=== PATIENT | male | born 1970 | race Caucasian/White ===

== ENCOUNTER 2023-09-26 09:05 | Outpatient (CLI) | payer BC, SELFPAY ==
--- NOTE | 2023-09-29 15:00 | WPDHOLTEREM ---
Holter/Event Monitor Holter/Event Monitor Date of procedure: 09/26/23 Holter/Event Procedure: 48 Hr Holter Monitor Indications: Irregular heart beat Conclusion: 1. 48 hour holter monitor on 09/26/23. 2. Underlying rhythm is sinus rhythm. HR range 54-126 bpm; average HR 84 bpm. 3. There are 19 premature supraventricular complexes and 1 supraventricular couplet. No supraventricular tachycardia. 4. There are 8 premature ventricular complexes. No ventricular tachycardia. 5. No sinoatrial or atrioventricular blocks. No significant pauses greater than 2 seconds. 6. Patient reports symptoms of headache which demonstrates sinus rhythm at 76 bpm.
== END 2023-09-26 09:06 | disposition home or self-care (01) ==
LOC: CHSCARD 09:11
PROVIDERS: PCP Nurse Practitioner Family; Visit Provider Nurse Practitioner Family
DX: Z13.6 Encounter for screening for cardiovascular disorders (principal)
CPT/HCPCS: 93225; 93226

== ENCOUNTER 2025-05-04 10:15 | Outpatient (CLI) | payer OTHER, SELFPAY ==
--- NOTE | 2025-05-04 10:30 | ECG_ITS ---
Test Date: 2025-05-04 10:55:05 Measurements Intervals [place] Rate: 87 P: 44 CO: 193 QRS: 74 QRSD: 86 T: 32 QT: 338 QTc: 408 Interpretive Statements SINUS RHYTHM WITH OCCASIONAL ECTOPIC PREMATURE COMPLEXES LEFT ATRIAL ENLARGEMENT LOW QRS VOLTAGE IN PRECORDIAL LEADS PATTERN CONSISTENT WITH PULMONARY DISEASE CONSIDER INFERIOR INFARCT, AGE INDETERMINATE BASELINE ARTIFACT- I, III, AVR, AVL, AVF, V1 ABNORMAL ECG No previous ECG available for comparison Electronically Signed On 05-04-2025 11:50:33 BUFFING MACHINE OPERATOR SEMIAUTOMATIC by Jovanni Vaughan D.O.
--- OUTSIDE RECORDS SUMMARY | 2025-05-04 11:36 | XMS_ITS | Clinical Summary ---
Author Organization [facility] [address] Address [address] [place] [id number] Care Team Providers Care Pharmacy Technician Per Diem Name Role Phone Unknown, Notinfile Primary Care Provider Unavail able Allergies Active Allergy Reactions Criticality Noted Date Comments Penicillins Syncope High 10/04/2021 Medications No known medications Active Problems No known active problems Surgical History Surgery Date Site/Laterality Comments SHOULDER OPEN ROTATOR CUFF REPAIR Medical History Medical History Date Comments Hyperlipidemia Social History Tobacco Use Types Packs/Day Years Used Date Smoking Tobacco: Never Smokeless Tobacco: Never AUDIT-C Answer Date Recorded Q1: How often do you have a drink containing alc ohol? 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 Gender Identity Not on file Sexual Orientation Not on file Last Filed Vital Signs Vital Sign Reading Time Taken Comments Blood Pressure 152/88 02/28/2024 6:53 PM CDT Pulse 95 02/28/2024 6:53 PM CDT Temperature 36.9 C (98.4 F) 02/28/2024 6:53 PM CDT Respiratory Rate 20 02/28/2024 6:53 PM CDT Oxygen Saturation 98% 02/28/2024 6:53 PM CDT Inhaled Oxygen Concentration - - Weight 119.5 kg (263 lb 6.4 oz) 02/28/2024 6:53 PM CDT Height 190.5 cm (6' 3) 02/28/2024 6:53 PM CDT Body Mass Index 32.92 02/28/2024 6:53 PM CDT Plan of Treatment Health Maintenance Due Date Last Done Comments Colon Cancer Screening-Colonoscopy 1971 Depression Screening 1971 Hepatitis C Screening 1971 Prostate Cancer Screening-PSA 1971 DTaP/Tdap/Td Vaccine (1 - Tdap) 1982 Hepatitis B Screening 1989 Regular Well Visit/Exam 18-64 1989 Zoster Vaccine (1 of 2) 2021 Covid-19 Vaccine (3 - 2024-2 6 season) 2025 09/28/2020, 09/07/2020 Influenza Vaccine (#1) 2025 Pneumococcal vaccine <65 Aged Out No longer eligible based on patient's age to complete this topic Insurance [facility] Care Teams Pharmacy Technician Per Diem Relationship Specialty Start Date End Date Unknown, Notinfile PCP - General 02/28/24
--- OUTSIDE RECORDS SUMMARY | 2025-05-04 11:36 | XMS_ITS | Clinical Summary ---
Author Organization [facility] Address [address] [phone] Phone Care Team Providers Care Sports Umpire Name Role Phone Provider, None Primary Care Provider Unavailabl e Social History Tobacco Use Types Packs/Day Years Used Date Smoking Tobacco: Never Assessed Sex and Gender Information Value Date Recorded Sex Assigned at Not on file Legal Sex Male 8:54 PM CDT Gender Identity Not on file Sexual Orientation Not on file Plan of Treatment Health Maintenance Due Date Last Done Comments Hepatitis C Virus (HCV) Screening 1971 TdaP Immunization 1971 Hepatitis B Immunization (1 of 3 - 19+ 3-dose series) 1990 Cologuard 2016 Colonoscopy 2016 Colorectal Cancer Screening 2016 Immunochemical Fecal Occult Blood 2016 Pneumococcal Immunization (5 0+ years) (1 of 1 - PCV) 2021 Zoster Immunization (1 of 2) 2021 Influenza Immunization (#1) 2025 SARS-COV-2 Immunization ( - season) 2025 Respiratory Syncytial Virus (RSV) Immunization (Adult) (1 - 1-dose 75+ series) 2046 Human Papillomavirus (HPV) Immunization Aged Out No longer eligible b ased on patient's age to complete this topic Meningococcal Immunization (ACWY) Aged Out No longer eligible based on patient's age to complete this topic Rotavirus Immunization Aged Out No lo nger eligible based on patient's age to complete this topic Care Teams Sports Umpire Relationship Specialty Start Date End Date Provider, None [place] PCP - General 11/15/20
== END 2025-05-04 10:16 | disposition home or self-care (01) ==
LOC: ANHSURGERY 10:18
PROVIDERS: PCP Nurse Practitioner Family; Visit Provider Surgery
DX: K42.9 Umbilical hernia without obstruction or gangrene (principal); E78.5 Hyperlipidemia, unspecified
CPT/HCPCS: 36415; 86850; 86900; 86901; 93005

== ENCOUNTER 2025-05-09 00:43 | Day surgery (SDC) | payer OTHER, SELFPAY ==
[2025-05-03 13:58] VITALS: BMI 31.9
--- NOTE | 2025-05-03 14:08 | PC.NURSE ---
[facility] has started construction of its new state of the art ER which will open Spring 2026. With this, we anticipate parking may be a challenge for some our surgical patients and families. Parking spaces are limited but are available for all Surgical, obstetrics, and ER patients sharing this lot. If you arrive and find you are having a hard time finding a parking space, please note that we understand the challenges, please drive around the hospital and park near Hospital Entrance 1. When you enter this entrance, you can ask a volunteer to direct or take you back to the surgical waiting area to check in. We appreciate everyone?s understanding of these expected challenges while we build for your future. Report to the Outpatient Waiting Room, entrance under the green pavilion located off [address], at time 6:00AM on date 05/09/2025. Planned Procedure Time: 7:30AM.? Time changes happen often and if your time is changed the preop area will call you the afternoon before. - You and your visitor will be asked to self-screen and do not enter if you have any COVID symptoms. Please call surgeon if you need to reschedule. - A mask is optional within the hospital at this time. Patients may have clear liquids (water, carbonated beverages, clear teas, apple juice) until 3 hours prior to surgery with a maximum of 20 ounces. - No food from midnight until time of surgery and no smoking, or chewing tobacco (or any form of nicotine). No chewing gum, candy or mints. Take only the following medications with a SIP of water on the morning of surgery: N/A DO NOT STOP ANY OF YOUR OTHER PRESCRIPTION MEDICATIONS PRIOR TO SURGERY EXCEPT THE FOLLOWING Hold all vitamins and supplements for 3 days per anesthesiologist. N/A Medications to discontinue per physician: Semaglutide Date to take last dose: 04/28/2025 Please no make-up, nail irish, hairspray, perfume, deodorant, or body powder the day of surgery.? No jewelry (including any body piercings) or valuables the day of surgery, leave them at home.? Please take a shower or bath the night before, or the morning of, surgery with an antibacterial soap.? Wear comfortable, loose fitting clothing.? Children are encouraged to wear pajamas. - Jewelry must be removed prior to entering the operating room.? Rings and piercings that are not removed may be cut off. - The hospital will not accept responsibility for valuables.? - Please leave all valuables, including medications, at home the day of surgery. If you are going home after surgery, a licensed milk pickup driver must drive you home.? - NO public transportation without another adult if you receive anesthesia. - We recommend that an adult stay with you for 24 hours following discharge. - We also recommend that you do not drive, make important decision, drink alcoholic beverages, or take any drugs that were not prescribed by your health care provider for at least 24 hours after your discharge time. Follow any additional instructions given to you from your surgeon. Telephone instructions given to ____patient and asked if any additional questions and then verbalized understanding. Patient advised to call surgeon office or pre surgery nurse liaison [phone] if any additional questions.
[2025-05-09] VITALS (11 sets, daily range): BP systolic 104–137; BP diastolic 59–80; PULSE 80–91; RESP 12–19; TEMP 36.1–36.3; O2SAT 93–100
--- OUTSIDE RECORDS SUMMARY | 2025-05-09 00:46 | XMS_ITS | Clinical Summary ---
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
--- OUTSIDE RECORDS SUMMARY | 2025-05-09 00:46 | XMS_ITS | Clinical Summary ---
Author Organization [facility] Address [address] [phone] Phone Care Team Providers Care Inspector Purchased Parts Name Role Phone Provider, None Primary Care [...] age to complete this topic Care Teams Inspector Purchased Parts Relationship Specialty Start Date End Date Provider, None [place] PCP - General 11/15/20
[2025-05-09] MEDS: ACETAMINOPHEN 500 MG TABLET 1000 MG PO (06:35)
[2025-05-09] MEDS: KETOROLAC 15 MG/ML VIAL (*BKC) IV PUSH ×2 (06:40→09:09)
[2025-05-09] MEDS: LACTATED RINGERS 1,000 ML 30 ML IV CONT ×2 (06:40→09:22)
--- NOTE | 2025-05-09 07:20 | P.HP_ITS ---
H&P: HPI History of Present Illness Date/Time: 05/09/25 07:20 Chief Complaint: Right inguinal hernia, umbilical hernia Narrative: Mr. Garcia presents to the office at the request of Kira Bojorquez APRN for evaluation. A few months ago, he has noticed a palpable bulge in his umbilicus. Minimally tender. No nausea, vomiting, abdominal distension, change in bowels, or other obstructive symptoms. Also has intermittent discomfort in his right groin. Has been ongoing for about about 10 years and seems to be aggravated with activity. No definite palpable bulge. Review of Systems Review of Systems: All systems reviewed & are unremarkable except as noted in HPI and below PMFSH Past Medical History Medical History Pectus excavatum Cigarette smoker (06/27/16) Hyperlipidemia (07/11/16) Family History Family History Mother Hypertension Family history of diabetes mellitus in first degree relative Family history of coronary artery disease Other Family history of malignant neoplasm Social History Social History Social History: Stopped smoking 8 years ago (as of 2023) Smoking packs per day: 1 Smoking cigarettes per day: 20.0 Years smoked: 20 Smoking pack-years: 20.00 Smoking status: Former smoker Tobacco type: cigarettes Alcohol intake: current Drinks per week: 3 Alcohol use details: very rare Substance use: never Substance use type: does not use Living arrangements: with family Spiritual care concerns: No Meds Home Medications and Allergies Home Medications ?Medication ?Instructions ?Recorded ?Confirmed ?Type atorvastatin 20 mg tablet (Lipitor) 20 mg PO QHS #90 t abs 02/21/25 05/09/25 Rx semaglutide 1 mg/dose (4 mg/3 mL) See Rx Instructions subcut WEEKLY 03/07/25 05/03/25 History subcutaneous pen injector Allergies Allergy/AdvReac Type Severity Reaction Status Date / Time Penicillins Allergy Intermediate Dizziness Verified 05/09/25 06:50 Vital Signs Vital Signs - 24 hr 05/09/25 06:18 Temperature 36.3 C L Pulse Rate 80 Respiratory Rate 16 Blood Pressure 137/80 Pulse Oximetry 100 Oxygen Delivery Room Air Exam Const: General: cooperative, comfortable and no acute distress Resp: Auscultation: clear to auscultation bilaterally Cardio: Rate: regular rate Rhythm: regular rhythm GI: Inspection: normal to inspection, non-distended and visible herniation GI Palp: No abdominal tenderness, Yes Soft to palpation and Yes Hernia present Other: moderate size right inguinal hernia reducible, moderate-sized incarcerated umbilical hernia defect measuring 3.5 cm Assessment and Plan Assessment and plan (1) Inguinal hernia of right side without obstruction or gangrene: Code(s): K40.90 - Unilateral inguinal hernia, without obstruction or gangrene, not specified as recurrent Status: Acute Assessment and Plan: will set up for robotic assisted repair with mesh (2) Umbilical hernia with obstruction, without gangrene: Code(s): K42.0 - Umbilical hernia with obstruction, without gangrene Status: Acute Assessment and Plan: was set up for concurrent repair with mesh, likely open from robotic port site
--- NOTE | 2025-05-09 07:24 | P.PNAN_ITS ---
Anes - Initial Pre Proc Eval Procedure: Operation Date: 05/09/25 07:30 Proposed Procedures p Robotic Assisted Right Inguinal Hernia Repair with Mesh, - Lexus Ponce MD s Laparoscopic Repair Incarcerated Umbilical Hernia, Possible Mesh - Lexus Ponce MD Date/Time: 05/09/25 07:24 Surgeon: Lexus Ponce MD Pre Op Diagnosis: right inguinal hernia, incarc umbilical hernia Patient Data Age: 55 Gender: M Height: 1.91 m Weight: 119.5 kg Last Vital Signs Temp 97.4 F L 05/09/25 06:18 Pulse 80 05/09/25 06:18 Resp 16 05/09/25 06:18 BP 137/80 05/09/25 06:18 Pulse Ox 100 05/09/25 06:18 O2 Del Method Room Air 05/09/25 06:18 Allergies Allergy/AdvReac Type Severity Reaction Status Date / Time Penicillins Allergy Intermediate Dizziness Verified 05/09/25 06:50 Home Medications ?Medication ?Instructions ?Recorded ?Confirmed ?Type atorvastatin 20 mg tablet (Lipitor) 20 mg PO QHS #90 t abs 02/21/25 05/09/25 Rx semaglutide 1 mg/dose (4 mg/3 mL) See Rx Instructions subcut WEEKLY 03/07/25 05/03/25 History subcutaneous pen injector Patient hx anesthesia problems: none Family hx anesthesia problems: none Results Review: All pre-operative results and documents have been reviewed as part of the pre- operative evaluation. [facility] Past Medical History Medical History Pectus excavatum Cigarette smoker (06/27/16) Hyperlipidemia (07/11/16) Family History Family History Mother Hypertension Family history of diabetes mellitus in first degree relative Family history of coronary artery disease Other Family history of malignant neoplasm Social History Social History Social History: Stopped smoking 8 years ago (as of 2023) Smoking packs per day: 1 Smoking cigarettes per day: 20.0 Years smoked: 20 Smoking pack-years: 20.00 Smoking status: Former smoker Tobacco type: cigarettes Alcohol intake: current Drinks per week: 3 Alcohol use details: very rare Substance use: never Substance use type: does not use Living arrangements: with family Spiritual care concerns: No Anes - Eval Final PreProcedure Day of Procedure 05/09/25 07:24 Patient weight: obese Heart: regular rate and rhythm Lungs: clear to auscultation Airway: Mallampati scale class II Neurological: alert and oriented Last oral intake: >/= 8 hours ASA classification: III Emergent: no Anesthetic plan: proceed Anesthesia type and monitoring: general ETT and standard monitoring Results Review: All pre-operative results and documents have been reviewed as part of the pre- operative evaluation. Informed Consent: The patient's anesthetic plan and its attendant risks and benefits were discussed with the patient/family/POA. Questions were solicited and answers provided to the satisfaction of the patient/family/POA.
--- NOTE | 2025-05-09 07:24 | WPDHPUPDATE1 ---
History and Physical Update Update Date/Time: 05/09/25 07:24 History and Physical has been reviewed, including an updated exam of the patient. There are NO changes in the patient's condition. Risks, benefits, and alternatives have been discussed and questions answered. Patient agrees to proceed with procedure.
[2025-05-09] MEDS: ceFAZolin 2 GM in SODIUM CHLORIDE 0.9% IV 50 ML 100 ML IVPB (07:30)
--- NOTE | 2025-05-09 09:24 | P.OP_ITS ---
Procedure Note - Detailed Date of Procedure 05/09/25 Pre-op Diagnosis right inguinal hernia, incarcerated umbilical hernia Post-op Diagnosis Same Procedure Performed robotic assisted repair right inguinal hernia with mesh, open incarcerated umbilical hernia with mesh with defect measuring 3 cm Surgeon Lexus Ponce MD Anesthesia General and Local Indications 55-year-old male presenting with a moderate size right inguinal hernia as well as an incarcerated umbilical hernia measuring 3 cm Findings moderate-sized indirect inguinal hernia, 3 cm incarcerated umbilical hernia with noted omentum Description of Procedure Patient was brought into the operating room and placed in the supine position. After adequate induction of general anesthesia, the patient was prepped and draped in normal sterile fashion. A time-out was then done to verify the patient's identity, as well as the procedure being performed. Began by making a 8 mm incision in the supraumbilical region, a Veress needle was then placed into the peritoneal cavity. CO2 gas was then insufflated and after adequate pneumoperitoneum was achieved, the Veress needle was removed. I then placed an 8 mm trocar through this incision. I then placed the endoscope through this trocar site and under direct visualization placed 2 further 8 mm ports in the right and left mid abdomen. The [employer] robot was then docked to the 3 trocar sites. I then scrubbed out and went to the robotic console. Upon examining the pelvis, it was noted that the patient had a moderate sized right inguinal hernia. The left side was examined and no hernia defect was noted. I began by making a preperitoneal flap approximately 6 cm superior to the defect. This flap was carried medially past the umbilical ligaments in laterally to the transversalis. It then began dissection of my medial compartment taking this down to the pubic tubercle. I then began the lateral dissection taking this down to the transversalis fascia. Once these compartments were achieved, I began dissection around the cord structures. A moderate sized indirect hernia was noted at this point. Using careful dissection, was able to reduce indirect hernia sac off the cord structures. Once this was adequately done, I went ahead and placed a large piece of 3D Max mesh into the abdominal cavity. The mesh was carefully positioned, centering the center of the mesh over the indirect defect. Once this was done, was very satisfied with our repair. Using 3-0 Vicryl sutures, I tacked the mesh medially to Holland's ligament. Two lateral sutures were placed from the mesh to the transversalis fascia. I then closed the peritoneal flap with a running 2.0 V Lock suture. The abdomen was then desufflated, and all ports were removed. I then enlarged the supraumbilical incision. This was taken down to the level of the fascia. I then was able to get around the umbilicus and hernia complex inferiorly. Once all the way around, I dissected the umbilicus off the hernia sac. I then excised the hernia sac. Upon getting into the hernia, a large amount of incarcerated omentum was noted. The omentum was noted to be viable but inflamed. This was reduced back into the peritoneal cavity. I then cleared off the fascia both superiorly and inferiorly. This left an approximate 3 cm defect. I then placed a small piece of Ventralex mesh in the underlay position. This was sutured in in the 4 cardinal directions with interrupted 0 Ethibond sutures. The fascia was then closed with 0 Ethibond sutures. I then tacked the umbilicus back down to our fascial repair using a 3-0 Vicryl U-stitch. The subcutaneous tissue was then closed with 3-0 Vicryl suture. All incisions were then closed with the 4.0 monocryl suture. Dermabond was placed on each wound. The patient tolerated the procedure well, was extubated in the operating room postoperatively, and will now be transferred to the recovery room in stable condition. Implants large 3DMax mesh, small Ventralex patch Estimated Blood Loss 10 Drains No Packing No Pathology None sent Complications No immediate complications Condition Stable Disposition PACU [facility] Billing Surgery - Charge Forward: Surgery Billing
[2025-05-09] MEDS: fentaNYL CITRATE INJ (*CRX) 100 MCG/2 ML VIAL 25 MCG IV PUSH ×2 (10:19→10:22)
[2025-05-09] MEDS: ONDANSETRON INJ 4 MG/2 ML VIAL IV PUSH (10:59)
[2025-05-09] MEDS: oxyCODONE HCL (*CRX) 5 MG TAB IR PO (11:07)
--- NOTE | 2025-05-10 13:17 | WPDANESPN ---
Anes - Prog Note Post-Op Date/Time: 05/10/25 13:17 Cardiovascular status: normal Respiratory status: normal Airway patency: baseline Mental status: baseline Post-Op hydration status: normal Vital Signs: Last Vital Signs Temp 36.1 C L 05/09/25 09:22 Pulse 84 05/09/25 12:00 Resp 19 05/09/25 10:30 BP 130/71 05/09/25 12:00 Pulse Ox 95 05/09/25 10:30 O2 Del Method Room Air 05/09/25 10:30 O2 Flow Rate 8 05/09/25 09:45 Pain Score (VAS): 2 Post-procedural complaints: none Patient Feedback: Patient satisfied with anesthetic care.
== END 2025-05-09 12:15 | disposition home or self-care (01) ==
PROVIDERS: PCP Nurse Practitioner Family; Visit Provider Surgery
PROC: 8E0Y4CZ Robotic Assisted Procedure of Lower Extremity, Percutaneous Endoscopic Approach (ICD-10-PCS; CPT 49650; principal; 2025-05-09 07:30)
PROC: (CPT 49650; 2025-05-09 07:30)
DX: K40.90 Unilateral inguinal hernia, without obstruction or gangrene, not specified as recurrent (principal); K42.0 Umbilical hernia with obstruction, without gangrene; Z87.891 Personal history of nicotine dependence; E66.9 Obesity, unspecified; Z68.32 Body mass index [BMI] 32.0-32.9, adult
CPT/HCPCS: 49650; 49594; S2900; J0690; A9270; C1781; J1100; J1885; J2003; J2250; J2405; J2704; J3010; J7030; J7120